=== PATIENT | female | born 1955 ===

== ENCOUNTER 2019-06-01 11:35 | Outpatient (CLI) | payer OTHER ==
[~2019-06-01 11:35] MED LIST: CLONAZEPAM2 M1 PO; RISPERDAL2 MG PO; SEROQUEL300 MG PO
== END 2019-06-01 11:47 | disposition home or self-care (01) ==
LOC: SONOGRAMA 11:35
DX: F31.89 Other bipolar disorder (principal); D06.1 Carcinoma in situ of exocervix

== ENCOUNTER 2019-06-04 07:20 | Day surgery (SDC) | payer OTHER ==
[2019-06-04] MEDS ORDERED: ZITHROMAX500 MG PO (12:46)
== END 2019-06-04 14:55 | disposition home or self-care (01) ==
LOC: CIR.AMB 07:20 → ADM 08:30 → CIR.AMB 09:00
DX: D06.1 Carcinoma in situ of exocervix (principal); N72 Inflammatory disease of cervix uteri